=== PATIENT | female | born 1955 | race Caucasian/White ===

== ENCOUNTER 2021-07-21 08:47 | Emergency (ER) | payer MEDICAID ==
[~2021-07-21] VITALS: Ht 147.3 cm; Wt 39.5 kg
[2021-07-21 08:55] VITALS: BP 166/82
[2021-07-21] MEDS ORDERED: ASPirin 81 mg TAB PO ONE (09:15)
[2021-07-21 09:30] LABS: Basophils # (auto) 0 10 ^3/uL (0-0.2); Basophils % (auto) 0.4 % (0.0-2.0); Eosinophils # (auto) 0.1 10 ^3/uL (0-0.8); Eosinophils % (auto) 1.4 % (0.0-7.0); Hematocrit 46.1 % (36.0-46.0); Hemoglobin 15.3 g/dL (12.2-16.2); Lymphocytes # (auto) 1.3 10 ^3/uL (0.4-5.4); Lymphocytes % (auto) 14.2 % (10.0-50.0); Mean Corpuscular Hemoglobin 31.4 pg (28.0-32.0); Mean Corpuscular Hgb Conc. 33.1 g/dL (32.0-36.0); Mean Corpuscular Volume 94.8 fL (80.0-100.0); Monocytes # (auto) 0.7 10 ^3/uL (0-1.3); Monocytes % (auto) 7.9 % (0.0-12.0); Neutrophils # (auto) 6.8 10 ^3/uL (1.6-8.6); Neutrophils % (auto) 76.1 % (37.0-80.0); Nucleated Red Blood Cells % 0.1 %; Red Blood Cells 4.86 10^6/uL (4.0-5.20); Red Cell Distribution Width 13.3 % (11.8-14.3); White Blood Cell 8.9 10^3/uL (4.4-10.8)
[2021-07-21 09:52] LABS: Albumin 3.9 g/dL (3.4-5.0); Anion Gap 4 (5-15); Blood Urea Nitrogen 23 mg/dL (7-18); Calcium 9.1 mg/dL (8.5-10.1); Carbon Dioxide 28 mmol/L (21-32); Chloride 104 mmol/L (98-107); Glucose 103 mg/dL (74-106); Potassium 4.5 mmol/L (3.5-5.1); Sodium 136 mmol/L (136-145)
[2021-07-21 09:57] LABS: Alanine Aminotransferase 40 U/L (13-56); Alkaline Phosphatase 120 U/L (45-117); Aspartate Aminotransferase 29 U/L (15-37); Bilirubin, Total 0.2 mg/dL (0.2-1.0); GFR African American 75 mL/min; GFR Non-African American 62 mL/min; Total Protein 7.8 g/dL (6.4-8.2)
== END 2021-07-21 10:48 | disposition left against medical advice (07) ==
LOC: EDBD 08:47 → ER 08:47
DX: R07.89 Other chest pain (principal); F41.9 Anxiety disorder, unspecified; F17.210 Nicotine dependence, cigarettes, uncomplicated; Z98.51 Tubal ligation status
CPT/HCPCS: 36415; 71046; 80053; 84484; 85025; 93005

== ENCOUNTER 2022-12-03 19:32 | Inpatient (IN) | payer OTHER, MEDICAID ==
[~2022-12-03] VITALS: Ht 152.4 cm; Wt 98.1 kg
[2022-12-04 00:40] VITALS: BP 153/99
[2022-12-04 05:48] VITALS: BP 149/87
[2022-12-04 07:05] LABS: Calcium 9.6 mg/dL (8.5-10.1); Potassium 4.4 mmol/L (3.5-5.1)
[2022-12-04 07:07] LABS: BUN/Creatinine Ratio 22.6
[2022-12-04 08:55] VITALS: BP 151/91
[2022-12-04] MEDS ORDERED: levoFLOXacin 500MG 100 ML IV SCH (10:00)
[2022-12-04 13:00] VITALS: BP 127/69
[2022-12-04] MEDS ORDERED: LISINOPRIL 10 MG TAB PO ONE (13:45)
[2022-12-04] MEDS ORDERED: ACETAMINOPHEN 500 MG TAB PO PRN (13:45)
[2022-12-04] MEDS ORDERED: ONDANSETRON HCL 4 MG/2 ML VIAL IV PRN (13:45)
[2022-12-04 16:43] VITALS: BP 139/83
[2022-12-04] MEDS ORDERED: SOD CHL 0.45% 1,000 ML IV SCH (17:15)
[2022-12-04] MEDS ORDERED: amLODIPine BESYLATE 5 MG TAB PO SCH (18:00)
[2022-12-04] MEDS: SODIUM CHLORIDE 0.9% 1,000 ML IV SCH (18:15)
[2022-12-04 21:11] LABS: Urine Bacteria NONE SEEN /hpf (None Seen); Urine Blood Negative /uL (Negative); Urine Specific Gravity 1.012 (1.001-1.035); Urine WBC 25 /hpf (0 - 5)
[2022-12-04 22:00] VITALS: BP 116/78
[2022-12-04] MEDS: LISINOPRIL 20 MG TAB PO SCH (22:08)
[2022-12-04] MEDS ORDERED: LORazepam 2MG/ML-1ML VIAL IV PRN (23:00)
[2022-12-04 23:16] LABS: Folate (Folic Acid) 16.36 ng/mL (5.38-24)
[2022-12-05 05:16] VITALS: BP 147/69
[2022-12-05 06:56] LABS: Basophils # (auto) 0 10 ^3/uL (0-0.2); Basophils % (auto) 0.4 % (0.0-2.0); Eosinophils # (auto) 0.2 10 ^3/uL (0-0.8); Hematocrit 44.2 % (36.0-46.0); Hemoglobin 15.4 g/dL (12.2-16.2); Lymphocytes # (auto) 1.5 10 ^3/uL (0.4-5.4); Lymphocytes % (auto) 19.7 % (10.0-50.0); Mean Corpuscular Hemoglobin 32.3 pg (28.0-32.0); Mean Corpuscular Hgb Conc. 34.9 g/dL (32.0-36.0); Mean Corpuscular Volume 92.6 fL (80.0-100.0); Monocytes # (auto) 0.9 10 ^3/uL (0-1.3); Monocytes % (auto) 11.2 % (0.0-12.0); Neutrophils # (auto) 5.1 10 ^3/uL (1.6-8.6); Neutrophils % (auto) 66.7 % (37.0-80.0); Red Blood Cells 4.77 10^6/uL (4.0-5.20); Red Cell Distribution Width 12.8 % (11.8-14.3); White Blood Cell 7.6 10^3/uL (4.4-10.8)
[2022-12-05 09:00] VITALS: BP 118/82
[2022-12-05] MEDS ORDERED: PANTOPRAZOLE 40 MG TAB PO SCH (10:00)
[2022-12-05] MEDS ORDERED: levoFLOXacin 250MG 50 ML IV SCH (10:00)
[2022-12-05] MEDS: LISINOPRIL 20 MG TAB PO SCH (10:07)
[2022-12-05] MEDS: SODIUM CHLORIDE 0.9% 1,000 ML IV SCH (10:18)
[2022-12-05] MEDS ORDERED: LISI-275 PO (12:47)
[2022-12-05] MEDS ORDERED: DONE5TAB11 PO (12:47)
[2022-12-05] MEDS ORDERED: MULT-351 PO (12:47)
[2022-12-05] MEDS ORDERED: AMLO-496 PO (12:47)
[2022-12-05] MEDS ORDERED: KEP500T PO (12:47)
[2022-12-05] MEDS ORDERED: CIPR-173 PO (12:48)
[2022-12-05 15:45] VITALS: BP 118/82
[2022-12-05 16:44] VITALS: BP 154/79
== END 2022-12-05 16:50 | disposition home or self-care (01) | DRG 56 ==
LOC: TELE 19:41 → TELE-WESTW 12-04 00:30
PROVIDERS: ADMIT Internal Medicine; ATTEND Hospitalist
DX: G30.9 Alzheimer's disease, unspecified (principal); G93.41 Metabolic encephalopathy; N39.0 Urinary tract infection, site not specified; E86.0 Dehydration; F17.200 Nicotine dependence, unspecified, uncomplicated; I11.9 Hypertensive heart disease without heart failure; F02.80 Dementia in other diseases classified elsewhere, unspecified severity, without behavioral disturbance, psychotic disturbance, mood disturbance, and anxiety; G40.909 Epilepsy, unspecified, not intractable, without status epilepticus; Z88.6 Allergy status to analgesic agent; Z82.49 Family history of ischemic heart disease and other diseases of the circulatory system
CPT/HCPCS: 36415; 80048; 81001; 82607; 82746; 84443; 85025; 87081; 87086; 87426; 95819; 97163; G0378; J1956

== ENCOUNTER 2023-07-07 22:59 | Emergency (ER) | payer OTHER, MEDICAID ==
[~2023-07-07] VITALS: Ht 147.3 cm; Wt 40.0 kg
[~2023-07-07 22:59] MED LIST: AMLO1TAB23 PO; CIPR-173 PO; DONE5TAB11 PO; KEP500T PO; LISI-275 PO; MULT-351 PO
[2023-07-08] MEDS ORDERED: ONDANSETRON ODT 4 MG TAB PO ONE (01:00)
[2023-07-08] MEDS ORDERED: HYDROcodone-ACET 10/325MG TAB PO ONE (01:00)
[2023-07-08] MEDS ORDERED: ACE3T PO (01:24)
[2023-07-08 02:09] VITALS: BP 122/75; PULSE 78; RESP 18; TEMP 97.6; O2SAT 98
== END 2023-07-08 02:10 | disposition home or self-care (01) ==
LOC: ER 22:59
DX: S93.492A Sprain of other ligament of left ankle, initial encounter (principal); S93.692A Other sprain of left foot, initial encounter; N18.9 Chronic kidney disease, unspecified; Z98.890 Other specified postprocedural states; Z88.8 Allergy status to other drugs, medicaments and biological substances; Z79.1 Long term (current) use of non-steroidal anti-inflammatories (NSAID); Z79.899 Other long term (current) drug therapy; V89.9XXA Person injured in unspecified vehicle accident, initial encounter; Y93.89 Activity, other specified; Y92.89 Other specified places as the place of occurrence of the external cause; Y99.8 Other external cause status
CPT/HCPCS: 73610; 73630; 99284; Q0162